=== PATIENT | female | born 1955 | race Caucasian/White ===

== ENCOUNTER 2017-07-25 16:38 | Emergency (ER) | payer OTHER ==
[2017-07-25] MEDS ORDERED: ONDANSETRON HCL 4 MG/2 ML 4 MG in SODIUM CHLORIDE 0.9% 100 ML 100 ML IV ONE (17:29)
[2017-07-25] MEDS ORDERED: ONDANSETRON HCL 4 MG/2 ML SOL IV ONE (17:30)
[2017-07-25] MEDS: SODIUM CHLORIDE 0.9% FLUSH 10 ML SOL IV PRN ×2 (17:30→17:48)
[2017-07-25] MEDS ORDERED: SODIUM CHLORIDE 0.9% 1000 ML SOL IV SCH (17:30)
[2017-07-25] MEDS ORDERED: ONDANSETRON HCL 4 MG/2 ML SOL ONE (17:31)
[2017-07-25 17:40] LABS: BASOPHILS % (AUTO) 1 % (0-3); EOSINOPHILS % (AUTO) 0 % (0-9); HEMATOCRIT 42 % (35-47); MEAN CORPUSCULAR HGB CONC 34.3 gm/dl (32.0-36.0); MEAN CORPUSCULAR VOLUME 88 fL (81-99); MONOCYTES % (AUTO) 6.9 % (0-12); NEUTROPHILS % (AUTO) 85.7 % (37-80)
[2017-07-25 17:53] LABS: CALCIUM 9.1 mg/dl (8.5-10.1); POTASSIUM 3.6 mMol/L (3.5-5.1)
[2017-07-25] MEDS ORDERED: POTASSIUM CHLORIDE 2 MEQ/ML SOL IV ONE (19:18)
[2017-07-25 19:19] LABS: APPEARANCE,URINE Clear; BILIRUBIN,URINE 1+ (NEGATIVE); COLOR,URINE Yellow; GLUCOSE, URINE (UA) NEGATIVE (NEGATIVE); KETONES,URINE 2+ (NEGATIVE); LEUKOCYTE ESTERASE ,URINE 2+ (NEGATIVE); NITRATE,URINE NEGATIVE (NEGATIVE); OCCULT BLOOD,URINE NEGATIVE (NEG-TRACE)
[2017-07-25] MEDS ORDERED: FLEET ENEMA PR PRN (19:32)
[2017-07-25] MEDS ORDERED: SODIUM CHLORIDE 0.9% 1000ML 1,000 ML with POTASSIUM CHLORIDE 2 MEQ/ML 10 MEQ IV ONE (19:33)
[2017-07-25 19:34] LABS: ICTOTEST,URINE NEGATIVE (NEGATIVE); RBC,URINE 0-2 (0-3AV/HPF); WBC,URINE 20-30 (0-5AV/HPF)
[2017-07-25] MEDS ORDERED: CIPROFLOXACIN HCL 500 MG TAB PO ONE (19:55)
[2017-07-25] MEDS ORDERED: PROMETHAZINE HYDROCHLORIDE 25 MG/ML SOL IV ONE (20:43)
[2017-07-25] MEDS ORDERED: PROMETHAZINE HYDROCHLORIDE 25 MG/ML SOL ONE (20:45)
[2017-07-25] MEDS ORDERED: KETOROLAC TROMETHAMINE 30 MG/ML SOL IV ONE (20:50)
[2017-07-25] MEDS ORDERED: KETOROLAC TROMETHAMINE 30 MG/ML SOL ONE (20:50)
[2017-07-25] MEDS ORDERED: HEPARIN 500 Unit PRE-FILL 100 U/ML SOL IV PRN (21:14)
[2017-07-25] MEDS ORDERED: HEPARIN SODIUM 100 U/ML SOL IV ONE (21:15)
[2017-07-25 21:16] VITALS: RESP 20
[2017-07-25 21:44] VITALS: BP 196/110; PULSE 85; O2SAT 99
[2017-07-25 21:48] VITALS: TEMP 98.1
== END 2017-07-25 21:38 | disposition home or self-care (01) | DRG 641 ==
LOC: ED 16:38
DX: E86.0 Dehydration (principal); K59.00 Constipation, unspecified; R11.2 Nausea with vomiting, unspecified; R51 Headache
CPT/HCPCS: 36415; 74020; 80048; 81001; 85025; 87040; 87088; 96365; 96366; 96374; 96375; 99284; 99285; J1644; J1885; J2405; J2550; J3480

== ENCOUNTER 2017-09-20 10:00 | Emergency (ER) | payer OTHER ==
[2017-09-20 10:33] LABS: BASOPHILS % (AUTO) 1 % (0-3); EOSINOPHILS % (AUTO) 0 % (0-9); HEMATOCRIT 35 % (35-47); MEAN CORPUSCULAR HGB CONC 35.6 gm/dl (32.0-36.0); MEAN CORPUSCULAR VOLUME 87 fL (81-99); MONOCYTES % (AUTO) 6.9 % (0-12); NEUTROPHILS % (AUTO) 84.3 % (37-80)
[2017-09-20 11:35] LABS: POTASSIUM 3.6 mMol/L (3.5-5.1)
[2017-09-20 11:36] LABS: ALBUMIN 3.1 gm/dl (3.4-5.0); CALCIUM 8.5 mg/dl (8.5-10.1)
[2017-09-20 11:42] VITALS: RESP 20; TEMP 98.9
[2017-09-20] MEDS ORDERED: HEPARIN 500 Unit PRE-FILL 100 U/ML SOL IV PRN (11:43)
[2017-09-20] MEDS ORDERED: SODIUM CHLORIDE 0.9% FLUSH 10 ML SOL IV PRN (11:43)
[2017-09-20] MEDS ORDERED: HEPARIN SODIUM 100 U/ML SOL IV ONE (12:02)
[2017-09-20 12:24] VITALS: O2SAT 99
[2017-09-20 12:26] VITALS: BP 139/83; PULSE 65
== END 2017-09-20 12:43 | disposition home or self-care (01) | DRG 312 ==
LOC: ED 10:00
DX: R55 Syncope and collapse (principal); C79.31 Secondary malignant neoplasm of brain; C50.919 Malignant neoplasm of unspecified site of unspecified female breast
CPT/HCPCS: 36591; 70450; 80053; 83735; 84100; 85025; 93005; 99284; 99285; J1644

== ENCOUNTER 2017-11-22 09:53 | Inpatient (IN) | payer OTHER ==
[2017-11-22] MEDS ORDERED: LEVETIRACETAM (PREMIX) 1 GM 1 GM/100 ML SOL IV ONE (10:04)
[2017-11-22] MEDS ORDERED: FOSPHENYTOIN 50 MG PE/ML SOL IV ONE ×2 (10:30→11:52)
[2017-11-22] MEDS ORDERED: FOSPHENYTOIN 50 MG PE/ML SOL ONE ×2 (10:37→12:05)
[2017-11-22 10:54] LABS: BASOPHILS % (AUTO) 1 % (0-3); EOSINOPHILS % (AUTO) 0 % (0-9); HEMATOCRIT 36 % (35-47); MEAN CORPUSCULAR VOLUME 92 fL (81-99); MONOCYTES % (AUTO) 1.2 % (0-12); NEUTROPHILS % (AUTO) 89.3 % (37-80)
[2017-11-22 11:25] LABS: ALBUMIN 3.1 gm/dl (3.4-5.0); CALCIUM 8.7 mg/dl (8.5-10.1); POTASSIUM 4.3 mMol/L (3.5-5.1)
[2017-11-22 13:05] LABS: APPEARANCE,URINE Turbid; BILIRUBIN,URINE 1+ (NEGATIVE); COLOR,URINE Light yellow; GLUCOSE, URINE (UA) NEGATIVE (NEGATIVE); KETONES,URINE TRACE (NEGATIVE); LEUKOCYTE ESTERASE ,URINE 3+ (NEGATIVE); NITRATE,URINE NEGATIVE (NEGATIVE); OCCULT BLOOD,URINE 3+ (NEG-TRACE); PH,URINE 5.5; UROBILINOGEN,URINE 0.2 (0.2-1.0 EU)
[2017-11-22] MEDS ORDERED: SODIUM CHLORIDE 0.9% 1000ML 1,000 ML IV ONE ×5 (13:44→20:30)
[2017-11-22] MEDS ORDERED: SOLUMEDROL 125 MG/2 ML 125 MG/2 ML PDS IV ONE (13:52)
[2017-11-22] MEDS ORDERED: LEVOFLOXACIN 500 MG (PREMIX) 500 MG/100 ML SOL IV ONE (14:27)
[2017-11-22] MEDS: DEXTROSE/SALINE 0.45/KCL 20MEQ 1,000 ML/1,000 ML SOL IV SCH (18:17)
[2017-11-22 20:02] LABS: HEMATOCRIT 21 % (35-47); MEAN CORPUSCULAR VOLUME 91 fL (81-99)
[2017-11-22 20:11] LABS: CALCIUM 6.7 mg/dl (8.5-10.1); POTASSIUM 4.9 mMol/L (3.5-5.1)
[2017-11-22] MEDS: LEVETIRACETAM 250 MG TAB PO SCH (20:23)
[2017-11-22 20:26] LABS: APPEARANCE,URINE Clear; BILIRUBIN,URINE NEGATIVE (NEGATIVE); COLOR,URINE Yellow; GLUCOSE, URINE (UA) TRACE (NEGATIVE); KETONES,URINE NEGATIVE (NEGATIVE); LEUKOCYTE ESTERASE ,URINE NEGATIVE (NEGATIVE); NITRATE,URINE NEGATIVE (NEGATIVE); OCCULT BLOOD,URINE TRACE INTACT (NEG-TRACE); PH,URINE 6.5; UROBILINOGEN,URINE 0.2 (0.2-1.0 EU)
[2017-11-22] MEDS ORDERED: SODIUM CHLORIDE 0.9% FLUSH 10 ML SOL IV PRN (20:27)
[2017-11-22] MEDS ORDERED: SODIUM CHLORIDE 0.9% 500 ML 500 ML IV SCH (20:45)
[2017-11-22] MEDS ORDERED: LORAZEPAM 0.5 MG TAB PO SCH (21:00)
[2017-11-22] MEDS: VENLAFAXINE HYDROCHLORIDE PO SCH (21:43)
[2017-11-22 21:49] LABS: BASOPHILS % (MANUAL) 0 % (0-3); EOSINOPHILS % (MANUAL) 0 % (0-9); LYMPHOCYTES % (MANUAL) 5 % (10-50); NORMAL RBCS NORMAL RBCS
[2017-11-22 23:37] LABS: ABO A; RH TYPE Positive
[2017-11-22] MEDS ORDERED: SODIUM CHLORIDE 0.9% 1000ML 1,000 ML IV SCH (23:59)
[2017-11-23] MEDS: DEXTROSE/SALINE 0.45/KCL 20MEQ 1,000 ML/1,000 ML SOL IV SCH ×3 (04:30→23:06)
[2017-11-23 08:01] LABS: BASOPHILS % (AUTO) 1 % (0-3); EOSINOPHILS % (AUTO) 0 % (0-9); HEMATOCRIT 19 % (35-47); MEAN CORPUSCULAR HGB CONC 35.1 gm/dl (32.0-36.0); MEAN CORPUSCULAR VOLUME 91 fL (81-99); MONOCYTES % (AUTO) 6.7 % (0-12); NEUTROPHILS % (AUTO) 86.3 % (37-80)
[2017-11-23 08:11] LABS: POTASSIUM 4.8 mMol/L (3.5-5.1)
[2017-11-23 08:14] LABS: CALCIUM 6.4 mg/dl (8.5-10.1)
[2017-11-23] MEDS ORDERED: OMEPRAZOLE 20 MG CAPSULE PO SCH (09:00)
[2017-11-23] MEDS: LEVETIRACETAM 250 MG TAB PO SCH ×2 (09:16→20:24)
[2017-11-23] MEDS: PANTOPRAZOLE SODIUM 40 MG ECT PO SCH (09:16)
[2017-11-23 10:25] LABS: ANTIBODY SCREEN Positive; UNIT TYPE A POSITIVE
[2017-11-23] MEDS: ENOXAPARIN 80 MG SOL SC SCH (10:27)
[2017-11-23] MEDS ORDERED: SODIUM CHLORIDE 0.9% 500 ML 500 ML IV ONE (10:35)
[2017-11-23] MEDS: VENLAFAXINE HYDROCHLORIDE PO SCH ×2 (12:24→20:24)
[2017-11-23 15:26] LABS: UNIT TYPE A POSITIVE
[2017-11-23 15:30] LABS: UNIT TYPE A POSITIVE
[2017-11-24] MEDS: DEXTROSE/SALINE 0.45/KCL 20MEQ 1,000 ML/1,000 ML SOL IV SCH ×3 (00:07→07:28)
[2017-11-24 07:17] LABS: POTASSIUM 4.2 mMol/L (3.5-5.1)
[2017-11-24 07:18] LABS: BASOPHILS % (AUTO) 1 % (0-3); EOSINOPHILS % (AUTO) 0 % (0-9); HEMATOCRIT 27 % (35-47); MEAN CORPUSCULAR HGB CONC 35.5 gm/dl (32.0-36.0); MEAN CORPUSCULAR VOLUME 88 fL (81-99); MONOCYTES % (AUTO) 6.3 % (0-12); NEUTROPHILS % (AUTO) 88.3 % (37-80)
[2017-11-24 09:24] VITALS: TEMP 97.8
[2017-11-24] MEDS: LEVETIRACETAM 250 MG TAB PO SCH (09:25)
[2017-11-24] MEDS: ENOXAPARIN 80 MG SOL SC SCH (09:26)
[2017-11-24] MEDS: PANTOPRAZOLE SODIUM 40 MG ECT PO SCH (09:26)
[2017-11-24] MEDS: VENLAFAXINE HYDROCHLORIDE PO SCH (09:26)
[2017-11-24] MEDS ORDERED: HEPARIN 500 Unit PRE-FILL 100 U/ML SOL IV PRN (11:27)
[2017-11-24] MEDS ORDERED: LEVOFLOXACIN 500 MG TAB PO ONE (13:52)
[2017-11-24 14:46] VITALS: BP 147/91; PULSE 91; RESP 28; O2SAT 93
== END 2017-11-24 14:45 | disposition hospice, inpatient (51) | DRG 312 ==
LOC: ED 09:53 → ACUTE CARE 13:14 → UNDOADMOB 13:14 → ACUTE CARE 13:25 → OBSVTOIN 13:25
PROVIDERS: ADMIT Family Medicine; ATTEND Family Medicine
DX: R55 Syncope and collapse (principal); I95.9 Hypotension, unspecified; C79.31 Secondary malignant neoplasm of brain; I82.403 Acute embolism and thrombosis of unspecified deep veins of lower extremity, bilateral; C50.919 Malignant neoplasm of unspecified site of unspecified female breast; D64.9 Anemia, unspecified; R53.83 Other fatigue; N39.0 Urinary tract infection, site not specified; R73.9 Hyperglycemia, unspecified
CPT/HCPCS: 36415; 36591; 70450; 80048; 80053; 81001; 81003; 85007; 85025; 85027; 85610; 86850; 86900; 86901; 86922; 87077; 87088; 87186; 93005; 93012; 96374; 99070; 99221; 99284; 99285; J1644; J1650; J1956; J2930; P9016; Q2009